=== PATIENT | male | born 1985 | race Caucasian/White ===

== ENCOUNTER 2018-04-17 00:32 | Emergency (ER) | payer SELFPAY, MEDICAID ==
[2018-04-17] MEDS: DEXAMETHASONE 10 MG/ML 1 ML INJ PO (02:03)
[2018-04-17] MEDS: IBUPROFEN 600 MG TAB PO (02:03)
== END 2018-04-17 02:32 | disposition home or self-care (01) ==
LOC: FTE 00:32
DX: H60.92 Unspecified otitis externa, left ear (principal); I10 Essential (primary) hypertension
CPT/HCPCS: 99283